=== PATIENT | male | born 1985 | race Two or more races ===

== ENCOUNTER 2021-11-17 16:51 | Inpatient (IN) | payer OTHER ==
[2021-11-17 17:39] VITALS: BMI 26.5
[2021-11-17] MEDS ORDERED: MAGNESIUM HYDROX 2400MG/30ML ORAL SUSPENSION 30 ML CUP PO PRN (19:17)
[2021-11-17] MEDS ORDERED: DICYCLOMINE HCL 10 MG CAPSULE PO PRN (19:17)
[2021-11-17] MEDS ORDERED: chlordiazePOXIDE HCL 25 MG CAPSULE PO PRN (19:17)
[2021-11-17] MEDS ORDERED: ACETAMINOPHEN 325 MG TABLET (FP) PO PRN (19:17)
[2021-11-17] MEDS ORDERED: MAGNESIUM CITRATE 300 ML BOTTLE PO PRN (19:17)
[2021-11-17] MEDS ORDERED: BENZOCAINE/MENTHOL (CHLORASEPTIC ) LOZENGE MM PRN (19:17)
[2021-11-17] MEDS ORDERED: MAG HYDROX/AL HYDROX/SIMETH 30 ML UNIT-DOSE CUP PO PRN (19:17)
[2021-11-17] MEDS ORDERED: ONDANSETRON *ODT* 4 MG TABLET SL PRN (19:17)
[2021-11-17] MEDS ORDERED: LOPERAMIDE HCL 2 MG CAPSULE PO PRN (19:17)
[2021-11-17] MEDS ORDERED: BISMUTH SUBSALICYLATE 524 MG/30 ML PO PRN (19:17)
[2021-11-17] MEDS ORDERED: NICOTINE POLACRILEX 2 MG GUM BUC PRN (19:17)
[2021-11-17] MEDS: MELATONIN 5 MG TABLETS PO SCH (22:44)
[2021-11-17] MEDS: chlordiazePOXIDE HCL 25 MG CAPSULE PO SCH (22:44)
[2021-11-17] MEDS: THIAMINE HCL 100 MG TABLET (FP) PO SCH (22:44)
[2021-11-17] MEDS: METHOCARBAMOL 500 MG TABLET PO PRN (22:46)
[2021-11-18] MEDS: ACETAMINOPHEN 325 MG TABLET (FP) PO PRN (06:40)
[2021-11-18] MEDS: chlordiazePOXIDE HCL 25 MG CAPSULE PO SCH ×4 (06:40→22:16)
[2021-11-18] MEDS: PRENATAL VITAMINS W/ FOLIC ACID TABLET (FP) PO SCH (10:06)
[2021-11-18] MEDS: METHOCARBAMOL 500 MG TABLET PO PRN ×2 (10:08→22:17)
[2021-11-18] MEDS: NICOTINE 14 MG/24 HOURS TOPICAL PATCH TD SCH (10:09)
[2021-11-18 12:02] LABS: HEMATOCRIT 41.3 % (35.4-49); HEMOGLOBIN 14.1 GM/dL (11.7-16.9); MCH 33.2 pg (25.7-33.7); MCHC 34.2 g/dl (32.0-35.9); MEAN CELL VOLUME 97.2 fl (80-96); MEAN PLT VOLUME 8.8 fl (7.5-11.1); PLATELET COUNT 175 10^3/uL (134-434); RBC 4.25 M/mm3 (4.00-5.60); RDW 16.8 % (11.9-15.9); WHITE BLOOD COUNT 5.5 K/mm3 (4.0-10.0)
[2021-11-18 12:13] LABS: CALCIUM 8.8 mg/dL (8.5-10.1)
[2021-11-18 12:14] LABS: ALBUMIN 3.4 g/dl (3.4-5.0); BLOOD UREA NITROGEN 6.9 mg/dL (7-18)
[2021-11-18 12:17] LABS: CREATININE 0.7 mg/dL (0.55-1.3)
[2021-11-18 12:19] LABS: BILIRUBIN,TOTAL 1.1 mg/dL (0.2-1); TOT PROT 6.6 g/dl (6.4-8.2)
[2021-11-18] MEDS ORDERED: POTASSIUM CHLORIDE ORAL LIQUID 20 MEQ/15 ML PO ONE (16:07)
[2021-11-18] MEDS: IBUPROFEN 400 MG TABLET (FP) PO PRN (17:47)
[2021-11-18] MEDS: THIAMINE HCL 100 MG TABLET (FP) PO SCH (22:16)
[2021-11-18] MEDS: MELATONIN 5 MG TABLETS PO SCH (22:16)
[2021-11-18] MEDS: POTASSIUM CHLORIDE ORAL LIQUID 20 MEQ/15 ML PO SCH (22:16)
[2021-11-19] MEDS: IBUPROFEN 400 MG TABLET (FP) PO PRN ×2 (06:00→17:23)
[2021-11-19] MEDS: chlordiazePOXIDE HCL 25 MG CAPSULE PO SCH ×4 (07:20→22:08)
[2021-11-19 08:06] LABS: SARS-CoV-2 NAA Not Detected (Not Detected)
[2021-11-19 08:06] LABS: SARS-CoV-2 NAA Not Detected (Not Detected)
[2021-11-19] MEDS: POTASSIUM CHLORIDE ORAL LIQUID 20 MEQ/15 ML PO SCH ×2 (10:07→22:08)
[2021-11-19] MEDS: PRENATAL VITAMINS W/ FOLIC ACID TABLET (FP) PO SCH (10:07)
[2021-11-19] MEDS: METHOCARBAMOL 500 MG TABLET PO PRN ×2 (10:08→22:08)
[2021-11-19] MEDS: NICOTINE 14 MG/24 HOURS TOPICAL PATCH TD SCH (10:10)
[2021-11-19 14:37] LABS: CALCIUM 8.9 mg/dL (8.5-10.1)
[2021-11-19 14:38] LABS: BLOOD UREA NITROGEN 11.7 mg/dL (7-18)
[2021-11-19 14:40] LABS: CREATININE 0.6 mg/dL (0.55-1.3)
[2021-11-19 14:42] LABS: BILIRUBIN,TOTAL 0.7 mg/dL (0.2-1); TOT PROT 6.1 g/dl (6.4-8.2)
[2021-11-19] MEDS: NICOTINE 10 MG CARTRIDGE (INHALER) IH PRN ×2 (18:05→22:12)
[2021-11-19] MEDS: MELATONIN 5 MG TABLETS PO SCH (22:08)
[2021-11-19] MEDS: THIAMINE HCL 100 MG TABLET (FP) PO SCH (22:08)
[2021-11-20] MEDS ORDERED: chlordiazePOXIDE HCL 10 MG CAPSULE PO PRN
[2021-11-20] MEDS: METHOCARBAMOL 500 MG TABLET PO PRN ×2 (05:20→22:19)
[2021-11-20] MEDS: ACETAMINOPHEN 325 MG TABLET (FP) PO PRN (05:21)
[2021-11-20] MEDS: chlordiazePOXIDE HCL 10 MG CAPSULE PO SCH ×4 (05:21→22:19)
[2021-11-20] MEDS: NICOTINE 10 MG CARTRIDGE (INHALER) IH PRN ×4 (05:29→22:20)
[2021-11-20] MEDS: IBUPROFEN 400 MG TABLET (FP) PO PRN ×2 (10:07→17:56)
[2021-11-20] MEDS: PRENATAL VITAMINS W/ FOLIC ACID TABLET (FP) PO SCH (10:07)
[2021-11-20] MEDS: NICOTINE 14 MG/24 HOURS TOPICAL PATCH TD SCH (10:08)
[2021-11-20] MEDS ORDERED: POTASSIUM CHLORIDE ORAL LIQUID 20 MEQ/15 ML PO ONE (14:23)
[2021-11-20] MEDS: POTASSIUM CHLORIDE ORAL LIQUID 20 MEQ/15 ML PO SCH (22:18)
[2021-11-20] MEDS: MELATONIN 5 MG TABLETS PO SCH (22:18)
[2021-11-20] MEDS: THIAMINE HCL 100 MG TABLET (FP) PO SCH (22:19)
[2021-11-21] MEDS: chlordiazePOXIDE HCL 10 MG CAPSULE PO SCH ×2 (05:41→17:39)
[2021-11-21] MEDS: ACETAMINOPHEN 325 MG TABLET (FP) PO PRN (05:42)
[2021-11-21] MEDS: NICOTINE 10 MG CARTRIDGE (INHALER) IH PRN ×4 (05:43→22:48)
[2021-11-21] MEDS: METHOCARBAMOL 500 MG TABLET PO PRN ×2 (10:23→22:43)
[2021-11-21] MEDS: PRENATAL VITAMINS W/ FOLIC ACID TABLET (FP) PO SCH (10:23)
[2021-11-21] MEDS: NICOTINE 14 MG/24 HOURS TOPICAL PATCH TD SCH (10:24)
[2021-11-21] MEDS: POTASSIUM CHLORIDE ORAL LIQUID 20 MEQ/15 ML PO SCH ×2 (10:24→22:44)
[2021-11-21] MEDS: IBUPROFEN 400 MG TABLET (FP) PO PRN (17:40)
[2021-11-21] MEDS: MELATONIN 5 MG TABLETS PO SCH (22:43)
[2021-11-21] MEDS: THIAMINE HCL 100 MG TABLET (FP) PO SCH (22:44)
[2021-11-22] MEDS ORDERED: chlordiazePOXIDE HCL 10 MG CAPSULE PO ONE (05:00)
[2021-11-22] MEDS: IBUPROFEN 400 MG TABLET (FP) PO PRN (05:23)
[2021-11-22] MEDS: NICOTINE 10 MG CARTRIDGE (INHALER) IH PRN (05:24)
[2021-11-22 08:55] VITALS: BP 138/88; PULSE 100; TEMP 97.7
== END 2021-11-22 10:57 | disposition home or self-care (01) | DRG 775 ==
LOC: YASAS 16:51 → Y3N 20:13
PROVIDERS: ADMIT Allergy & Immunology; ATTEND Allergy & Immunology
PROC: HZ2ZZZZ Detoxification Services for Substance Abuse Treatment (ICD-10-PCS; principal; 2021-11-17)
DX: F10.230 Alcohol dependence with withdrawal, uncomplicated (principal); F12.20 Cannabis dependence, uncomplicated; F17.210 Nicotine dependence, cigarettes, uncomplicated; E87.6 Hypokalemia; R74.01 Elevation of levels of liver transaminase levels; R74.8 Abnormal levels of other serum enzymes
CPT/HCPCS: 36415; 80053; 83036; 84075; 84132; 84450; 84460; 85027; 86780; 87811; 93005; 93010; C9803-CS; U0003; U0005